=== PATIENT | male | born 1940 | race Caucasian/White ===

== ENCOUNTER → 2018-10-22 16:46 | Outpatient (CLI) | payer MEDICARE, SELFPAY ==
[2017-02-09 19:07] VITALS: BMI 20.9
== END ==
PROVIDERS: Family Provider Nurse Practitioner Family; PCP Nurse Practitioner Family; Referring Provider Urology; Visit Provider Urology
DX: R30.0 Dysuria (principal)
CPT/HCPCS: 87086; 87088; 87186